=== PATIENT | female | born 1935 | race Caucasian/White ===

== ENCOUNTER 2018-07-20 12:05 | Inpatient (IN) | payer OTHER, MEDICAID ==
[~2018-07-20] VITALS: Ht 162.6 cm; Wt 77.1 kg
[2018-07-20 12:08] VITALS: BP 151/54
[2018-07-20 12:21] LABS: ABSOLUTE BASOPHILS 0.1 thou/uL (0.0-0.2); ABSOLUTE EOSINOPHILS 0.3 thou/uL (0.0-0.7); ABSOLUTE LYMPHOCYTES 1.3 thou/uL (0.8-5.3); ABSOLUTE MONOCYTES 0.7 thou/uL (0.0-1.2); ABSOLUTE NEUTROPHILS 7.6 thou/uL (1.6-8.1); BASOPHILS 0.7 %; EOSINOPHILS 3.1 %; HEMATOCRIT 33.2 % (37.0-47.0); HEMOGLOBIN 10.6 gm/dL (12.0-15.0); LYMPHOCYTES 13.1 %; MCH 26.2 pg (26.0-34.0); MCHC 31.9 g/dL (28.0-37.0); MCV 82.3 fL (80.0-100.0); MONOCYTES 7.2 %; MPV 7.6 fl. (7.2-11.1); NUCLEATED RBCS 0 /100WBC; PLATELET COUNT* 321 thou/uL (150-400); POLYS 75.9 %; RBC 4.03 mil/uL (4.20-5.00); RDW-CV 15.4 % (10.5-14.5)
[2018-07-20 12:30] LABS: INR 2.4; PROTIME 24.4 Seconds (9.20-11.50)
[2018-07-20 12:31] LABS: ANION GAP 6 mmol/L (7-16); BUN 24 mg/dL (7-18); CALCIUM 8.5 mg/dL (8.5-10.1); CHLORIDE 100 mmol/L (98-107); CO2 31 mmol/L (21-32); CREATININE 1.2 mg/dL (0.6-1.3); GLUCOSE 219 mg/dL (70-99); POTASSIUM 4.7 mmol/L (3.5-5.1); SODIUM 137 mmol/L (136-145)
[2018-07-20 12:42] LABS: ALBUMIN 2.7 g/dL (3.4-5.0); ALKALINE PHOSPHATASE 68 U/L (46-116); LIPASE 125 U/L (73-393); MAGNESIUM 1.5 mg/dL (1.8-2.4); NT-PRO BRAIN NAT PEPTIDE 1396 pg/mL (<300); SGOT 15 U/L (15-37); SGPT 18 U/L (30-65); TOTAL BILIRUBIN 0.3 mg/dL (<0.1-1.0); TOTAL PROTEIN 6.7 g/dL (6.4-8.2); TROPONIN-I LEVEL <0.06 ng/mL (<0.06)
[2018-07-20] MEDS ORDERED: PERFOROMIS20 MCG/2 M INH (13:03)
[2018-07-20] MEDS ORDERED: IPRAT-ALBUT 0.5-3 ML INH (13:04)
[2018-07-20] MEDS ORDERED: LANTUS SUBQ (13:04)
[2018-07-20] MEDS ORDERED: CHOLESTYRAMINE P4 GM PO (13:04)
[2018-07-20] MEDS ORDERED: OMEGA-31000 M1 PO (13:04)
[2018-07-20] MEDS ORDERED: NORVASC10 MG PO (13:47)
[2018-07-20] MEDS ORDERED: LIPITOR10 MG PO (13:47)
[2018-07-20] MEDS ORDERED: LASIX 40 MG TAB40 M2 PO (13:47)
[2018-07-20] MEDS ORDERED: FLOMAX0.4 MG PO (13:48)
[2018-07-20] MEDS ORDERED: REMERON15 MG PO (13:48)
[2018-07-20] MEDS ORDERED: POTASSIUM20 PO (13:48)
[2018-07-20] MEDS ORDERED: GLUCOPHAGE XR500 MG PO (13:48)
[2018-07-20] MEDS ORDERED: LOPRESSOR100 M1 PO (13:48)
[2018-07-20] MEDS ORDERED: GABAPENTIN 100100 MG PO (13:48)
[2018-07-20] MEDS ORDERED: COUMADIN 3 MG TA3 M1 PO (13:49)
[2018-07-20] MEDS ORDERED: COUMADIN 1MG TAB1 M1 PO (13:49)
--- NOTE | 2018-07-20 16:02 | EKG ---
[place] [address] ELECTROCARDIOGRAM REPORT Name: YUE WATSON Room: [place] [address] ADM IN [facility].#: [id number] Admission: 07/20/18 Attend Phys: Mae London MD Discharge: Date of : 37 Report #: [id number] THIS REPORT FOR: //name// [facility] ED Test Date: 2018-07-20 Test Time: 12:09:58 Pat Name: YUE SHIRLEY Department: Room: [facility] Gender: F Millwright Instructor: Bryan VILLARREAL : 1935 Requested By: Amari Corley Order Number: [id number] MD: Venancio Christine Measurements Intervals [place] Rate: 65 P: 63 NV: 224 QRS: 106 QRSD: 149 T: 6 QT: 425 QTc: 442 Interpretive Statements Sinus rhythm Prolonged [place] interval RBBB and LPFB No previous ECG available for comparison Electronically Signed On 07-20-2018 16:02:16 COMPUTER SUPPORT ANALYST by Venancio Christine [email or web address] <ELECTRONICALLY SIGNED> By: Venancio Christine MD, [facility] 07/20/18 1602 1209 120 Venancio Christine MD, FACC /EPI
[2018-07-20 17:00] VITALS: BP 133/68
[2018-07-20 20:00] VITALS: BP 157/68
[2018-07-20 20:36] VITALS: BP 140/67
[2018-07-21] VITALS: BP 136/56
[2018-07-21 04:00] VITALS: BP 120/70
[2018-07-21 05:13] LABS: ABSOLUTE EOSINOPHILS 0.3 thou/uL (0.0-0.7); ABSOLUTE LYMPHOCYTES 1.5 thou/uL (0.8-5.3); ABSOLUTE MONOCYTES 0.7 thou/uL (0.0-1.2); ABSOLUTE NEUTROPHILS 3.7 thou/uL (1.6-8.1); BASOPHILS 0.6 %; EOSINOPHILS 4.9 %; HEMATOCRIT 32.8 % (37.0-47.0); HEMOGLOBIN 10.4 gm/dL (12.0-15.0); LYMPHOCYTES 23.6 %; MCHC 31.6 g/dL (28.0-37.0); MCV 82.3 fL (80.0-100.0); MPV 8.1 fl. (7.2-11.1); NUCLEATED RBCS 0 /100WBC; PLATELET COUNT* 296 thou/uL (150-400); POLYS 59.9 %; RBC 3.98 mil/uL (4.20-5.00); RDW-CV 15.4 % (10.5-14.5); WBC 6.2 thou/uL (4.0-11.0)
[2018-07-21 05:24] LABS: INR 2.3; PROTIME 23.5 Seconds (9.20-11.50)
[2018-07-21 05:26] LABS: ANION GAP 8 mmol/L (7-16); BUN 21 mg/dL (7-18); CALCIUM 8.7 mg/dL (8.5-10.1); CHLORIDE 102 mmol/L (98-107); CHOLESTEROL 131 mg/dL (<200); CO2 30 mmol/L (21-32); CREATININE 1.1 mg/dL (0.6-1.3); GLUCOSE 127 mg/dL (70-99); HDL CHOLESTEROL 40 mg/dL (>40); LDL CHOLESTEROL 70 mg/dL (<100); MAGNESIUM 1.8 mg/dL (1.8-2.4); POTASSIUM 3.9 mmol/L (3.5-5.1); SODIUM 140 mmol/L (136-145); TC:HDL 3.3 Ratio (Not establshd); TRIGLYCERIDE 108 mg/dL (<150); VLDL 22 mg/dL (<40)
[2018-07-21 05:28] LABS: SERUM ASSESSMENT Clear
[2018-07-21 08:00] VITALS: BP 154/66
[2018-07-21 12:00] VITALS: BP 126/62
[2018-07-21 12:53] LABS: URINE BILIRUBIN NEGATIVE (Negative); URINE BLOOD NEGATIVE (Negative); URINE CLARITY CLEAR; URINE COLOR YELLOW; URINE GLUCOSE-RANDOM NEGATIVE (Negative); URINE KETONES NEGATIVE (Negative); URINE LEUKOCYTES-REFLEX NEGATIVE (Negative); URINE NITRITE-REFLEX NEGATIVE (Negative); URINE PROTEIN NEGATIVE (Negative); URINE UROBILINOGEN 0.2 E.U./dl (0.2-1.0)
--- NOTE | 2018-07-21 13:47 | CON ---
[address] [address] CONSULTATION Name: YUE WATSON Room: [address] IN .R.#: [id number] Admission: 07/20/18 Attend Phys: Mae London MD Discharge: Date of : 37 Report #: [id number] THIS REPORT FOR: //name// CC: Becky London PRIMARY CARE PHYSICIAN: Becky Stevenson. CHIEF COMPLAINT: Chest pain. HISTORY OF PRESENT ILLNESS: The patient is an 83-year-old woman with extensive vascular history, who presents with onset of resting chest discomfort off and on over the past week, most of her episodes last 1-2 minutes long. She had a prolonged episode, went to the Emergency Room, and her ECG showed a conduction delay and she was admitted for further evaluation. Subsequent cardiac troponin levels have been normal. She is physically debilitated. She just recently moved in with one of her daughters to the [facility] after living in [facility]. She was most recently hospitalized in [place], and apparently. she was told she had a new problem in the mitral valve. She has a history of prior aortic valve replacement as her only cardiovascular history. She overnight had resolution of her chest pain and currently is asymptomatic. As noted above, her troponins are normal. She presents in a sinus rhythm. She denies palpitations or heart racing. She denies weight gain or edema. She has chronic shortness of breath. She is a smoker. She has just quit apparently 2 weeks ago. PAST MEDICAL HISTORY: In 2007, she was found to have a heart murmur and underwent a tissue aortic valve replacement and came to [place], [place] at [facility]. She apparently did not need bypasses. None of these records are currently available. Prior to this, she was found to have significant vascular disease and underwent a carotid endarterectomy. Her most recent procedures included what sounds like numerous percutaneous attempts to treat lower extremity vascular disease, but apparently she has also had a lower extremity bypass surgery, also in [place], [place]. She is chronically anticoagulated with warfarin. She is a tobacco user until 2 weeks ago. She has chronic kidney disease, lower GI bleed, mild dementia, hyperlipidemia, AAA, neuropathy, urinary retention, diabetes mellitus. HOME MEDICATIONS: Included insulin, albuterol, Atrovent, omega 3, cholestyramine 4 grams p.o. t.i.d., amlodipine 10 mg daily, atorvastatin 10 mg daily, gabapentin 100 mg p.o. t.i.d., Remeron 15 mg at bedtime, tamsulosin, warfarin 1 mg daily and 3 mg daily, metoprolol tartrate 100 mg p.o. b.i.d. REVIEW OF SYSTEMS: GENERAL: No [place]vers [place] [address] CONSULTATION Name: YUE WATSON Room: [address] IN .R.#: [id number] Admission: 07/20/18 Attend Phys: Mae London MD Discharge: Date of : 37 Report #: [id number] PULMONARY: Positive cough, positive shortness of breath. CARDIOVASCULAR: Positive chest pain. No palpitations. NEUROLOGIC: No seizures. HEMATOLOGIC: Positive anemia. RENAL: Positive history of kidney disease. SKIN: No rashes. EXTREMITIES: Positive lower extremity tingling, weakness and pain, which is chronic, felt to be neuropathic. GENERAL: No fevers or chills. PHYSICAL EXAMINATION: VITAL SIGNS: Blood pressure is 154/66, pulse is 80. She is in sinus rhythm. Temperature 36.3, on 2 liters nasal cannula, O2 sats 100%. GENERAL: This is an obese elderly female. She is a poor historian. She reports she is hard of hearing. She is in no apparent distress. HEENT: Eyes, EOMs are intact. No facial asymmetry. NECK: Supple. No jugular venous distention. Carotid upstrokes are normal with no bruits. There is a radiating systolic murmur. CARDIOVASCULAR: Regular, has a high systolic murmur. There is no S3. LUNGS: Have diminished breath sounds. ABDOMEN: Nontender. EXTREMITIES: Distal extremities are warm. Her right radial pulse is palpable 2+. Her left side is 1+ Femoral pulses are 1+ distal extremities. Dorsalis pedis pulses are warm, very faint. NEUROLOGIC: There are no focal deficits. Electrocardiogram as noted above. LABORATORY DATA: Troponin I 0.06 x 3 sets. Hemoglobin 10.4, white blood cell count 6.2. INR is 2.3, creatinine is 1.1. GFR is 48. Troponin I is 0.06. Chest x-ray shows a left basilar infiltrate or atelectasis, mild cardiomegaly, on admission, alveolar infiltrate of right medial lung base without effusion. IMPRESSION: 1. Chest discomfort. This seems to be anginal, she has ruled out for an acute myocardial infarction. Because she is fully anticoagulated and has kidney disease, I would like to proceed noninvasively with a pharmacologic nuclear stress test. She cannot walk on a treadmill because of her vascular disease and neuropathy. 2. Aortic valve replacement. An echocardiogram has been ordered. She will continue with warfarin for another indication. 3. Peripheral vascular disease. She apparently is scheduled to see a vascular surgeon as an outpatient for maintenance surveillance of her abdominal aortic aneurysm and lower extremity disease. She currently has no acute symptoms from a lower [place] [address] CONSULTATION Name: YUE WATSON Room: [address] IN ..#: [id number] Admission: 07/20/18 Attend Phys: Mae London MD Discharge: Date of : 37 Report #: [id number] 4. Hypertension. We will continue medical therapy, which is appropriate. 5. Tobacco cessation is recommended. She had quit approximately 2 weeks ago according to her daughter and hopefully this will continue. 6. Hyperlipidemia. She is on numerous drugs, therapies. We will survey lipids. <ELECTRONICALLY SIGNED> By: Elvis Nance MD, FACC 07/21/18 1347 0917 [id number] Nance MD, FACC /nt
--- NOTE | 2018-07-21 14:52 | 2DMMODE ---
[place] [address] 2 D/M-MODE ECHOCARDIOGRAM Name: YUE WATSON Room: [address] IN [facility]#: [id number] Admission: 07/20/18 Attend Phys: Mae London MD Discharge: Date of : 37 Date of Service: 07/21/18 1452 Report #: [id number] THIS REPORT FOR: //name// APPROVED REPORT Study performed: 07/21/2018 10:36:39 EXAM: Comprehensive 2D, Doppler, and color-flow Echocardiogram Patient Location: In-Patient Room #: [facility] Status: routine BSA: 1.82 HR: 65 bpm BP: 154/66 mmHg Rhythm: NSR Other Information Study Quality: Good Indications Prosthetic Valve Chest Pain 2D Dimensions IVSd: 15.86 (7-11mm) LVOT Diam: 19.10 (18-24mm) LVDd: 36.31 mm PWd: 12.17 (7-11mm) Ascending Ao: 38.65 (22-36mm) LVDs: 25.81 (25-40mm) Aortic Root: 33.37 mm Volumes Left Atrial Volume (Systole) LA ESV Index: 44.50 mL/m2 Aortic Valve AoV Peak Paolo.: 2.75 m/s AO Peak Gr.: 30.25 mmHg LVOT Max P.56 mmHg AO Mean Gr.: 16.89 mmHg LVOT Mean P.51 mmHg LVOT Max V: 0.80 m/s AO V2 VTI: 58.56 cm LVOT Mean V: 0.58 m/s CIERRA (VTI): 0.98 cm2 LVOT V1 VTI: 19.93 cm Mitral Valve MV Mean Gr.: 4.83 mmHg E/A Ratio: 1.27 MV Decel. Time: 355.73 [place] [address] 2 D/M-MODE ECHOCARDIOGRAM Name: YUE WATSON Room: [address] IN .R.#: [id number] Admission: 07/20/18 Attend Phys: Mae London MD Discharge: Date of : 37 Date of Service: 07/21/18 1452 Report #: [id number] MV E Max Paolo.: 1.64 m/s MV PHT: 103.16 ms MVA (PHT): 2.13 cm2 TDI E/Lateral E': 23.43 E/Medial E': 32.80 Medial E' Paolo.: 0.05 m/s Lateral E' Paolo.: 0.07 m/s Pulmonary Valve PV Peak Paolo.: 0.81 m/s PV Peak Gr.: 2.62 mmHg Tricuspid Valve RAP Estimate: 5.00 mmHg TR Peak Gr.: 24.38 mmHg RVSP: 29.00 mmHg PA Pressure: 29.00 mmHg Left Ventricle The left ventricle is normal size. There is normal LV segmental wall motion. Moderate concentric left ventricular hypertrophy. Left ventricular systolic function is normal. The left ventricular ejection fraction is within the normal range. LVEF is 65%. The left ventricular diastolic function is normal. Right Ventricle The right ventricle is normal size. The right ventricular systolic function is normal. Atria Left atrium is moderately dilated. The right atrium size is normal. Aortic Valve Bioprosthetic aortic valve is present. No aortic regurgitation is present. 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 Trace mitral regurgitation. Mild to moderate mitral stenosis.Mean gradient <5mmHg Tricuspid Valve The tricuspid valve is normal in structure. Trace tricuspid regurgitation. No pulmonary [place] [address] 2 D/M-MODE ECHOCARDIOGRAM Name: YUE WATSON Room: [address] IN [facility]#: [id number] Admission: 07/20/18 Attend Phys: Mae London MD Discharge: Date of : 37 Date of Service: 07/21/18 1452 Report #: [id number] Pulmonic Valve The pulmonary valve is normal in structure. There is no pulmonic valvular regurgitation. Great Vessels The aortic root is normal in size. IVC is normal in size and collapses >50% with inspiration. Pericardium There is no pericardial effusion. <Conclusion> LVEF is 65%. Moderate concentric left ventricular hypertrophy. There is normal LV segmental wall motion. Left atrium is moderately dilated. Bioprosthetic aortic valve is present. 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 Mild to moderate mitral stenosis.Mean gradient <5mmHg Trace mitral regurgitation. <ELECTRONICALLY SIGNED> By: Elvis Nance MD, FACC 07/21/181451 51 51 Elvis Nance MD, FACC /INF
--- NOTE | 2018-07-21 16:47 | EKG ---
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1935 Requested By: Mae London Order Number: [id number] Reading MD: Elvis Nance Measurements Intervals [place] Rate: 75 P: 41 [place]: 231 QRS: 93 QRSD: 150 T: -5 QT: 416 QTc: 465 Interpretive Statements Sinus rhythm Prolonged [place] interval RBBB and LPFB Compared to ECG 07/20/2018 12:09:58 No significant changes Electronically Signed On 07-21-2018 16:47:36 SENIOR INFRASTRUCTURE ARCHITECT by Elvis Nance [email or web address] <ELECTRONICALLY SIGNED> By: Elvis Nance MD, [facility] 07/21/18 1647 0953 [id number] Elvis Nance MD, [facility] /EPI
--- NOTE | 2018-07-21 17:03 | CARDNUC ---
[place] [address] CARDIAC NUCLEAR IMAGING REPORT Name: YUE WATSON Room: [address] IN [facility]#: [id number] Admission: 07/20/18 Attend Phys: Mae London MD Discharge: Date of : 37 Date of Service: 07/21/18 1703 Report #: [id number] THIS REPORT FOR: //name// APPROVED REPORT Imaging Protocol: Rest Tc-99m/Stress Tc-99m 1 day Study performed: 07/21/2018 09:26:00 Indication: Chest pain, Dyspnea Patient Location: In-Patient Room #: 209 Stress Tech: Fabiana Rios Stress Nurse: Julia Jones RN Ht: 5 ft 4 in Wt: 167 lbs BSA: 1.81 m2 BMI: 28.66 Medical History Medical History: Angina, Cardiomegaly, Valvular Heart Disease, AAA without rupture, Aortic valve replacement, RBBB, CKD 3, HTN, Hyperlipidemia, PVD, RBBB, Weakness, Former Smoker, Diabetes Medications: Metoprolol, Atorvastatin, Amlodipine, ASA 325 mg, Lasix, NTG. Allergies: Penicillins, Codeine, Amoxicillin Cardiac Risk Factors: Age, DM, HTN, Hyperlipidemia, SOB, Tobacco History (Current/Recent), PVD, AAA without rupture, Valvular Heart Disease, Aortic Valve replacement, RBBB, Cardiomegaly. Previous Cardiac Procedures: Aortic Valve Replacement Pretest Chest Pain Characteristics: No chest pain Exercise History: Sedentary Physical Disabilities: Generalized weakness, pain in feet and legs, Demenita, Oxygen. Resting Data Rest SPECT myocardial perfusion imaging was performed in supine position 30 minutes following the intravenous injection of 10.6 mCi of Tc-99m Sestamibi. Time of rest injection: 13:00 The images were gated to evaluate regional wall motion and calculate left ventricular ejection fraction. Administration Route: IV Administration Site: Right [place] [address] CARDIAC NUCLEAR IMAGING REPORT Name: YUE WATSON Room: [address] IN [facility]#: [id number] Admission: 07/20/18 Attend Phys: Mae London MD Discharge: Date of : 37 Date of Service: 07/21/18 1703 Report #: [id number] Pharmacologic stress test was performed by injecting Regadenoson 0.4 mg IV push over 10-15 seconds immediately followed by the intravenous injection of 32.6 mCi of Tc-99m Sestamibi. Time of stress injection: 14:45 Administration Route: IV Administration Site: Right Hand Heart Rate at time of stress injection: 76 bpm. Gated Stress SPECT was performed 40 minutes after stress injection. The images were gated to evaluate regional wall motion and calculate left ventricular ejection fraction. Stress Test Details Stress Test: Pharmacologic stress testing performed using 0.4 mg of regadenoson per 5 mL given IV over 10 seconds. Reason for pharmacologic stress test: physical limitation, Generalized weakness, pain in feet, Oxygen, Dementia.. HR Max Heart Rate (APMHR): 138 bpm Resting HR: 65 bpm Target HR (85% APMHR): 117 bpm Max HR Achieved: 76 bpm % of APMHR: 55 Recovery HR: 75 bpm HR response to stress: Normal HR response to stress BP Resting BP: 122/71 mmHg Max BP: 202/92 mmHg Recovery BP: 164/88 mmHg BP response to stress: Normal blood pressure response to stress. ECG Resting ECG: nsr rbbb Stress ECG: same ST Change: none Recovery ECG: nsr Recovery ST Change: none Clinical Reason for Termination: Completed protocol Stress Symptoms: Weakness, Fatigue, increased anxiety, , Dyspnea, Funny feeling in head. Exercise duration: 0 min 0 sec Exercise capacity: 1.00 [place] [address] CARDIAC NUCLEAR IMAGING REPORT Name: YUE WATSON Room: [address]#: [id number] Admission: 07/20/18 Attend Phys: Mae London MD Discharge: Date of : 37 Date of Service: 07/21/18 1703 Report #: [id number] 83 year old female presented in wheelchair with painful feet and oxygen. Patient a two assist for transfers, generalized weakness and painful feet. Patient very anxious and forgetful r/t memory problems. Patient became anxious with Lexiscan and stated she couldn't breath while on 2L O2, oxygen increased to 3L O2 for comfort. Patient stated her head felt funny. Reported symptoms resolved with coffee and snacks, patient stated she felt better. Patient assisted by staff via wheelchair to Nuclear Medicine for images. Patient stable with no complaints at that time. Stress ECG Conclusion nondiagnostic Study Quality Study: Fair Artifact: Mild Increased GI uptake Lung Uptake: Normal Study Data At rest, the left ventricular ejection fraction was 69%.. Post stress, the left ventricular ejection was 72%.. SSS: 4 SRS: 8 SDS: -4 TID = 1.15. Perfusion Review of the Stress SPECT images reveals a relative normal perfusion of tracer uptake. Without defects.Imaging at REST show the SPECT images have a patchy, inhomogenous uptake of tracer. These findings are likely reverse redistribution artifact, rather than ischemia. No reversible defects are seen. Images were reviewed using [employer]. Wall Motion normal all segments Nuclear Conclusion ECG Findings: non-diagnostic Clinical Findings: negative for ischemia Nuclear Findings: negative for ischemia Exercise Capacity: not assessed Left Ventricular Function: normal Risk Study: low Negative study for ischemia or infarct .[place] [address] CARDIAC NUCLEAR IMAGING REPORT Name: YUE WATSON Room: [address]#: [id number] Admission: 07/20/18 Attend Phys: Mae London MD Discharge: Date of : 37 Date of Service: 07/21/18 1703 Report #: [id number] <Conclusion> nondiagnostic <ELECTRONICALLY SIGNED> By: Elvis Nance MD, FACC 07/21/181702 02 02 Elvis Nance MD, FACC /INF
[2018-07-21 19:08] LABS: GLYCOHEMOGLOBIN (HGB A1C) 7.6 % (4.8-5.6)
[2018-07-22] VITALS (7 sets, daily range): BP systolic 109–133; BP diastolic 55–78
--- NOTE | 2018-07-22 14:34 | EKG ---
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28 : 1935 Requested By: Mae London Order Number: [id number] Reading MD: Venancio Christine Measurements Intervals [place] Rate: 80 P: ID: QRS: 110 QRSD: 147 T: -3 QT: 401 QTc: 463 Interpretive Statements Atrial fibrillation RBBB and LPFB consider anteroseptal infarct, old Compared to ECG 07/21/2018 09:53:37 sinus rhythm not seen Electronically Signed On 07-22-2018 14:34:34 FLIGHT HOSTESS by Venancio Christine [email or web address] <ELECTRONICALLY SIGNED> By: Venancio Christine MD, [facility] 07/22/18 1434 1059 1059 Venancio Christine MD, [facility] /EPI
[2018-07-23 04:00] VITALS: BP 129/54
[2018-07-23 05:10] LABS: ABSOLUTE EOSINOPHILS 0.4 thou/uL (0.0-0.7); ABSOLUTE MONOCYTES 0.6 thou/uL (0.0-1.2); ABSOLUTE NEUTROPHILS 5.6 thou/uL (1.6-8.1); BASOPHILS 0.6 %; EOSINOPHILS 5.1 %; HEMATOCRIT 31.7 % (37.0-47.0); MCHC 31.7 g/dL (28.0-37.0); MCV 81.8 fL (80.0-100.0); MONOCYTES 8.3 %; MPV 7.7 fl. (7.2-11.1); NUCLEATED RBCS 0 /100WBC; PLATELET COUNT* 322 thou/uL (150-400); RBC 3.87 mil/uL (4.20-5.00); RDW-CV 15.5 % (10.5-14.5); WBC 7.6 thou/uL (4.0-11.0)
[2018-07-23 05:20] LABS: INR 1.3; PROTIME 13.5 Seconds (9.20-11.50)
[2018-07-23 05:27] LABS: CALCIUM 9.2 mg/dL (8.5-10.1); CREATININE 1.3 mg/dL (0.6-1.3); POTASSIUM 4.3 mmol/L (3.5-5.1)
[2018-07-23 09:00] VITALS: BP 128/53
[2018-07-23 12:00] VITALS: BP 138/75
[2018-07-23 16:00] VITALS: BP 126/48
[2018-07-23 20:00] VITALS: BP 107/56
[2018-07-24 00:09] VITALS: BP 147/68
[2018-07-24 09:00] VITALS: BP 123/103
[2018-07-24 12:09] VITALS: BP 158/120
[2018-07-24 16:12] VITALS: BP 145/67
[2018-07-24 20:00] VITALS: BP 145/57
[2018-07-25] VITALS: BP 122/46
[2018-07-25 04:00] VITALS: BP 160/69
[2018-07-25 07:57] VITALS: BP 168/68
[2018-07-25 12:00] VITALS: BP 149/62
[2018-07-25 16:00] VITALS: BP 146/62
[2018-07-25 20:00] VITALS: BP 135/63
[2018-07-26] VITALS: BP 147/71
[2018-07-26 04:00] VITALS: BP 131/69
[2018-07-26 08:08] VITALS: BP 147/58
[2018-07-26 12:00] VITALS: BP 131/64
[2018-07-26 16:00] VITALS: BP 137/61; BP 138/55
[2018-07-26 20:00] VITALS: BP 134/60
[2018-07-27 00:27] VITALS: BP 135/49
[2018-07-27 04:58] VITALS: BP 170/81
[2018-07-27 11:03] LABS: INR 2.1
[2018-07-27 12:00] VITALS: BP 128/65
[2018-07-27] MEDS ORDERED: LEVAQUIN 750 M750 MG PO (12:57)
[2018-07-27] MEDS ORDERED: ATORVASTATIN CA40 MG PO (12:58)
[2018-07-27] MEDS ORDERED: COLACE 100 MG100 MG PO (13:00)
[2018-07-27] MEDS ORDERED: MIRALAX17 GM PO (13:00)
== END 2018-07-27 16:00 | DRG 178 ==
LOC: M.ERS 12:05 → M.TBA-ER 13:43 → M.2W 13:43
PROVIDERS: Emergency Medicine Emergency Medical Services; ADMIT Family Medicine
DX: J15.6 Pneumonia due to other Gram-negative bacteria (principal); E44.0 Moderate protein-calorie malnutrition; I13.0 Hypertensive heart and chronic kidney disease with heart failure and stage 1 through stage 4 chronic kidney disease, or unspecified chronic kidney disease; N17.9 Acute kidney failure, unspecified; I50.42 Chronic combined systolic (congestive) and diastolic (congestive) heart failure; E78.5 Hyperlipidemia, unspecified; F03.90 Unspecified dementia, unspecified severity, without behavioral disturbance, psychotic disturbance, mood disturbance, and anxiety; E11.40 Type 2 diabetes mellitus with diabetic neuropathy, unspecified; N18.3 Chronic kidney disease, stage 3 (moderate); K21.9 Gastro-esophageal reflux disease without esophagitis; D50.9 Iron deficiency anemia, unspecified; F32.9 Major depressive disorder, single episode, unspecified; I48.0 Paroxysmal atrial fibrillation; K59.00 Constipation, unspecified; I25.10 Atherosclerotic heart disease of native coronary artery without angina pectoris; E11.22 Type 2 diabetes mellitus with diabetic chronic kidney disease; E11.51 Type 2 diabetes mellitus with diabetic peripheral angiopathy without gangrene; F17.210 Nicotine dependence, cigarettes, uncomplicated; T46.4X5A Adverse effect of angiotensin-converting-enzyme inhibitors, initial encounter; T44.5X5A Adverse effect of predominantly beta-adrenoreceptor agonists, initial encounter; Y92.89 Other specified places as the place of occurrence of the external cause; Z79.01 Long term (current) use of anticoagulants; Z68.29 Body mass index [BMI] 29.0-29.9, adult; Z95.2 Presence of prosthetic heart valve; Z79.4 Long term (current) use of insulin; Z79.899 Other long term (current) drug therapy; Z88.0 Allergy status to penicillin; Z88.1 Allergy status to other antibiotic agents; Z88.5 Allergy status to narcotic agent; Z71.6 Tobacco abuse counseling; Z80.3 Family history of malignant neoplasm of breast